=== PATIENT | female | born 1995 | race Caucasian/White ===

== ENCOUNTER 2021-05-22 06:19 | Emergency (ER) | payer BC, OTHER ==
[2021-05-22] MEDS ORDERED: ONDA4TAB11 PO (06:44)
[2021-05-22] MEDS ORDERED: MECL-149 PO (06:44)
[2021-05-22] MEDS ORDERED: IBUP-1780 PO (06:44)
--- NOTE | 2021-05-22 06:45 | ED Head Injury ---
General Chief Complaint: Head/Cervical Problems Stated Complaint: DIZZINESS;NAUSEA;HEAD INJ Nursing Triage Note: Pt states she fell a couple of days ago and hit the back of her head on concrete. Pt complaining of dizziness and that her equilibrium has been off since she fell Source: patient Exam Limitations: no limitations History of Present Illness Date Seen by Provider: May 22, 2021 Time Seen by Provider: 06:42 Initial Comments 26-year-old female presents with complaint of head injury 2 days ago, now having dizziness and feeling off balance with some mild nausea and decreased appetite. Denies significant headache or head pain. Denies any confusion. Denies history of head injury or other medical problems. Does not have a PCP locally she recently moved in the area for work. HPI patient states she was drinking alcohol and remembers falling.... Then the next thing she remembers is waking up the next morning. States she felt like she was "roofied". No concern of other foul play, denies any other injury or concern Allergies and Home Medications Allergies Coded Allergies: No Known Drug Allergies (Unverified , 05/22/21) Patient Home Medication List Home Medication List Reviewed: Yes Ibuprofen (Ibuprofen) 800 Mg Tablet, 800 MG PO Q8H PRN for PAIN Prescribed by: GUILLE COTO on 05/22/21 0644 Meclizine HCl (Meclizine HCl) 25 Mg Tablet, 25 MG PO Q8H Prescribed by: GUILLE COTO on 05/22/2144 Ondansetron (Ondansetron Odt) 4 Mg Tab.rapdis, 4 MG PO TID Prescribed by: GUILLE COTO on 05/22/21 0644 Review of Systems Review of Systems Constitutional: No fever, No malaise, No weakness Eyes: No Symptoms Reported Ears, Nose, Mouth, Throat: no symptoms reported Respiratory: no symptoms reported Cardiovascular: no symptoms reported Gastrointestinal: No abdominal pain; loss of appetite; No nausea, No vomiting Musculoskeletal: No back pain, No joint pain, No neck pain Skin: No change in color, No lesions, No lumps, No rash Psychiatric/Neurological: Denies Anxiety, Denies Depressed, Denies Emotional Problems, Denies Cognitive Dysfunction, Denies Headache, Denies Numbness, Denies Tingling, Denies Tonic Clonic Seizures, Denies Unable to Move Lower Ext, Denies Unable to Move Upper Ext, Denies Weakness Past [id number]-[id number] Hx Patient Social History Tobacco Use?: Yes Tobacco type used: Cigarettes Use of E-Cig and/or Vaping dev: No Substance use?: No Pt feels they are or have been: No Physical Exam Vital Signs Vital Signs - First Documented 05/22/21 06:22 Temp 37.1 Pulse 70 Resp 18 B/P (MAP) 139/80 (99) Pulse Ox 98 O2 Delivery Room Air Capillary Refill : Less Than 3 Seconds Height, Weight, BMI Height: '" Weight: lbs. oz. kg; BMI Method: General Appearance: WD/WN, no apparent distress HEENT: PERRL/EOMI, normal ENT inspection Neck: non-tender, full range of motion, supple Extremities: normal range of motion, non-tender, normal inspection Psychiatric: alert, oriented x 3 Crainal Nerves: normal hearing, normal speech, PERRL Coordination/Gait: normal finger to nose, normal gait Motor/Sensory: no motor deficit, no sensory deficit Skin: normal color, warm/dry Petey Coma Score Best Eye Response: (4) Open Spontaneously Best Verbal Response: (5) Oriented Best Motor Response: (6) Obeys Commands Progress/Results/Core Measures Results/Orders Vital Signs/I&O 05/22/21 06:22 Temp 37.1 Pulse 70 Resp 18 B/P (MAP) 139/80 (99) Pulse Ox 98 O2 Delivery Room Air Blood Pressure Mean: 99 Departure Impression Primary Impression: Brain concussion Qualified Codes: S06.0X9A - Concussion with loss of consciousness of unspecified duration, initial encounter Disposition: 01 HOME, SELF-CARE Condition: Stable Departure-Patient Inst. Decision time for Depature: 06:43 Referrals: [facility] Patient Instructions: Concussion, Adult ED Add. Discharge Instructions: follow up at the [facility] in 1 week if not imrproving, ER sooner if worse All discharge instructions reviewed with patient and/or family. Voiced understanding. Scripts Ondansetron (Ondansetron Odt) 4 Mg Tab.rapdis 4 MG PO TID for Nausea, #10 TAB Prov: GUILLE COTO DO 05/22/21 Meclizine HCl (Meclizine HCl) 25 Mg Tablet 25 MG PO Q8H for Dizziness, #20 TAB Prov: ROVENSTINE,GUILLE L DO 05/22/21 Ibuprofen (Ibuprofen) 800 Mg Tablet 800 MG PO Q8H PRN for PAIN, #30 TAB 0 Refills Prov: GUILLE COTO DO 05/22/21 GUILLE COTO DO May 22, 2021 06:45
[2021-05-22 06:46] VITALS: BP 139/80
== END 2021-05-22 06:50 | disposition home or self-care (01) ==
LOC: ER FS 06:24
DX: S06.0X9A Concussion with loss of consciousness of unspecified duration, initial encounter (principal); Z72.0 Tobacco use; W22.8XXA Striking against or struck by other objects, initial encounter
CPT/HCPCS: 99283